=== PATIENT | male | born 1985 | race Caucasian/White ===

== ENCOUNTER 2017-10-24 08:01 | Emergency (ER) | payer MEDICAID, OTHER ==
[2017-10-24 08:22] VITALS: O2SAT 100
[2017-10-24] MEDS ORDERED: Sodium Chloride 0.9% 1,000 ML IV ONE (08:31)
--- NOTE | 2017-10-24 08:48 | C.PDOC ---
History Of Present Illness 31 y/o male presents to ED with complaints of left flank pain developed 1 hours prior to arrival with associated x1 episode of vomiting. Patient denies recent travel, dysuria, hematuria, fever, chills or any other complaints at this time. Time Seen by Provider: 10/24/17 08:15 Chief Complaint (Nursing): Abdominal Pain History Per: Patient History/Exam Limitations: no limitations Onset/Duration Of Symptoms: Hrs Current Symptoms Are (Timing): Still Present Past Medical History Reviewed: Historical Data, Nursing Documentation, Vital Signs Vital Signs: Last Vital Signs Temp 98.0 F 10/24/17 12:38 Pulse 82 10/24/17 12:38 Resp 16 10/24/17 12:38 BP 114/49 L 10/24/17 12:38 Pulse Ox 100 10/24/17 12:38 Surgical History: No Surg Hx - [facility] APPLICATION OF SPLINT (07/19/14) Family History: States: No Known Family Hx - Social History Hx Alcohol Use: No Hx Substance Use: No - Immunization History Hx Tetanus Toxoid Vaccination: No Hx Influenza Vaccination: No Hx Pneumococcal Vaccination: No Review Of Systems Constitutional: Negative for: Fever, Chills Gastrointestinal: Positive for: Vomiting, Other (Flank Pain) Genitourinary: Negative for: Dysuria, Hematuria Skin: Negative for: Rash Physical Exam - Physical Exam Additional Physical Exam Comments: Constitutional: Non toxic. Uncomfortable Head: Normocephalic. Atraumatic. Eyes: PERRL. EOMI. ENT: Moist mucous membranes. Neck: Supple. Cardiovascular: Regular rate and rhythm. Chest: No tenderness. Respiratory: Clear to auscultation bilaterally. GI: LLQ Tenderness. Left Flank tenderness Back: No CVA and no mid-line tenderness. Musculoskeletal: No tenderness or swelling of extremities. Skin: No rash. Neurologic: Alert, no focal deficit. ED Course And Treatment - Laboratory Results Result Diagrams: 10/24/17 08:52 10/24/17 08:52 O2 Sat by Pulse Oximetry: 100 (RA) Pulse Ox Interpretation: Normal Medical Decision Making Medical Decision Making: Plan: CT Abdomen, Blood work, UA, Toradol pt still with pain after toradol; lidocaine ordered. 1219 pm pt much better after lidocaine, will d/c home with nsaids and strainer. f/u gu. Disposition Counseled Patient/Family Regarding: Studies Performed, Diagnosis, Need For Followup, Rx Given - Disposition Referrals: Laila Tucker MD [Staff Provider] - Disposition: HOME/ ROUTINE Disposition Time: 12:20 Condition: IMPROVED Additional Instructions: Please take Ibuprofen as prescribed. Alternate with Tylenol every 3 hours. Drink increased fluids. Strain all urine, and keep stone when it passes to take to Urologist. Call for appointment with urologist. Take flomax as prescrbied. Return to ER for any worsening symptoms. Prescriptions: Acetaminophen [Tylenol 325mg tab] 650 mg PO Q6 #30 tab Ibuprofen [Motrin] 600 mg PO QID #30 tab Tamsulosin [Flomax] 0.4 mg PO DAILY #6 cap Instructions: Kidney Stones (ED), Renal Colic (GEN), How to Strain Your Urine ( ED) Forms: [facility] (Rom[facility]), General Discharge Instructions - Clinical Impression Clinical Impression: Kidney stone on left side - PA / SUSPECT ARTIST / Resident Statement MD/DO has reviewed & agrees with the documentation as recorded. - Scribe Statement The provider has reviewed the documentation as recorded by the Roselynibleanna Cruz All medical record entries made by the Laney were at my direction and personally dictated by me. I have reviewed the chart and agree that the record accurately reflects my personal performance of the history, physical exam, medical decision making, and the department course for this patient. I have also personally directed, reviewed, and agree with the discharge instructions and disposition.
[2017-10-24 08:55] LABS: BASO % 0.5 % (0.0-2.0); EOS % 0.5 % (0.0-4.0); HEMOGLOBIN 14.1 g/dL (12.0-18.0); LYMPH # 1.6 K/uL (1.0-4.3); MEAN CELL VOLUME 70.4 fL (80.0-94.0); MEAN CORPUSCULAR HEMOGLOBIN 22.6 pg (27.0-31.0); MEAN CORPUSCULAR HGB CONC 32.1 g/dL (33.0-37.0); MEAN PLATELET VOLUME 9.3 fL (7.2-11.7); MONO # 0.5 K/uL (0.0-0.8); MONO % 7.4 % (0.0-10.0); NEUT # 4.9 K/uL (1.8-7.0); NEUT % 68.6 % (50.0-75.0); RBC 6.27 Mil/uL (4.40-5.90); WHITE BLOOD COUNT 7.2 K/uL (4.8-10.8)
[2017-10-24] MEDS ORDERED: Sodium Chloride 0.9% 1,000 ML ONE (08:55)
[2017-10-24 09:05] LABS: SQUAMOUS EPITHIAL < 1 /hpf (0-5); URINE BACTERIA RARE (<OCC); URINE BILIRUBIN NEGATIVE (NEGATIVE); URINE BLOOD 2+ (NEGATIVE); URINE CLARITY Clear (Clear); URINE COLOR Yellow (YELLOW); URINE GLUCOSE (UA) NORMAL (Normal); URINE HYALINE CAST 0-2 /lpf (0-2); URINE LEUKOCYTE ESTERASE NEG Leu/uL (Negative); URINE NITRATE NEGATIVE (NEGATIVE); URINE PROTEIN NEGATIVE (NEGATIVE); URINE UROBILINOGEN NORMAL mg/dL (0.2-1.0)
[2017-10-24 09:10] LABS: ALB/GLOB RATIO 1.5 (1.0-2.1); ALBUMIN 4.5 g/dL (3.5-5.0); ALT/SGPT 46 U/L (21-72); AST/SGOT 22 U/L (17-59); BLOOD UREA NITROGEN 16 mg/dL (9-20); CALCIUM 8.6 mg/dl (8.6-10.4); GFR AFRICAN-AMERICAN > 60; GFR NON-AFRICAN AMERICAN > 60
--- NOTE | 2017-10-24 10:15 | CT ---
PROCEDURE: CT Abdomen and Pelvis without contrast HISTORY: left flank pain and hematuria COMPARISON: None. TECHNIQUE: CT scan of the abdomen and pelvis was performed without IV contrast. The absence of oral contrast limits evaluation of bowel lumen. The absence of intravenous contrast limits evaluation of solid organs including the kidneys as well as blood vessels and vascular structures. Coronal and sagittal reconstructions were also acquired. Radiation dose: Total exam DLP = 534 mGy-cm. FINDINGS: LOWER THORAX: Visualized portions of the lung bases are clear. The heart is normal in size.. LIVER: Unremarkable unenhanced appearance. GALLBLADDER AND BILE DUCTS: Unremarkable unenhanced appearance. PANCREAS: Unremarkable unenhanced appearance. SPLEEN: Unremarkable unenhanced appearance. ADRENALS: Unremarkable unenhanced appearance. KIDNEYS AND URETERS: Right kidney: There is a 2 mm nonobstructing stone in the right kidney. No hydronephrosis. Left kidney: There is a 3 mm stone at the left UVJ with mild left hydroureter, primarily distally. BLADDER: Unremarkable REPRODUCTIVE: Prostatic calcifications noted. APPENDIX: Unremarkable. Normal appendix. STOMACH AND BOWEL: There is no abnormal small of large bowel dilatation. Stool noted within distal ileal bowel loops. PERITONEUM: No pelvic free fluid is seen. LYMPH NODES: No significant abdominal or pelvic lymphadenopathy. VASCULATURE: Aorta is normal in caliber. BONES: No acute fracture identified. OTHER FINDINGS: Small fluid-filled right inguinal hernia. IMPRESSION: There is a 3 mm stone at the left UVJ with mild left hydroureter, primarily distally. Nonobstructing right renal stone as above. Additional findings as above.
[2017-10-24] MEDS ORDERED: Lidocaine 102 MG in Sodium Chloride 0.9% 100 ML IV STA (10:37)
[2017-10-24 12:39] VITALS: BP 114/49; PULSE 82; RESP 16; TEMP 98
== END 2017-10-24 12:57 | disposition home or self-care (01) ==
LOC: C.ER 08:01
DX: N20.0 Calculus of kidney (principal)
CPT/HCPCS: 74176; 80053; 81001; 85025; 87086; 96361; 96374; 99285; J1885; J2001; J7040